=== PATIENT | female | born 1980 | race Caucasian/White ===

== ENCOUNTER → 2020-09-18 16:17 | Outpatient (CLI) | payer OTHER, SELFPAY ==
--- NOTE | ~2020-09-18 | MM_ITS ---
EXAMINATION: MM screening blanca BI w dorota HISTORY: Screening mammogram TECHNIQUE: Craniocaudal and mediolateral oblique 3-D tomosynthesis images were obtained and synthetic 2-D images were generated. CAD analysis was submitted and interpreted. COMPARISON: No prior mammogram is available for comparison at this institution. BREAST PARENCHYMAL COMPOSITION: There are scattered areas of fibroglandular density. FINDINGS: There is no evidence of suspicious mass, calcification, or architectural distortion to sugg est malignancy in either breast. There has been no suspicious interval change. IMPRESSION: 1. No mammographic evidence of malignancy. 2. Recommend routine screening mammography in one year. BI-RADS Category 1: Negative Reviewed, dictated and finalized at location A.
== END ==
PROVIDERS: Visit Provider Nurse Practitioner
DX: Z12.31 Encounter for screening mammogram for malignant neoplasm of breast (principal)
CPT/HCPCS: 77063; 77067

== ENCOUNTER 2021-07-13 13:57 | Inpatient (IN) | payer OTHER, SELFPAY ==
[2021-07-13 14:05] VITALS: BP 132/96; PULSE 96; RESP 16; TEMP 37; O2SAT 99
[2021-07-13 14:35] LABS: Alanine Aminotransferase 19 U/L (4-35); Albumin Level 4.6 g/dL (3.5-5.1); Alkaline Phosphatase 74 U/L (38-126); Anion Gap 8 mmol/L (8-16); Aspartate Amino Transferase 24 U/L (14-36); Bilirubin,Total 0.6 mg/dL (0.2-1.3); Blood Urea Nitrogen 11 mg/dL (7-17); Calcium 8.8 mg/dL (8.4-10.2); Carbon Dioxide 25 mmol/L (22-30); Chloride 104 mmol/L (98-107); Estimated CRCL calculation 101 ml/min; Estimated Glomerular Filt Rate > 60; Glucose 116 mg/dL (65-110); Potassium 3.8 mmol/L (3.4-5.0); Sodium 137 mmol/L (137-145)
[2021-07-13 14:38] LABS: INR 1.1; Prothrombin Time 13.5 Seconds (11.1-14.7)
[2021-07-13 14:39] LABS: Partial Thromboplastin Time 27.3 SECONDS (22.3-36.8)
--- NOTE | 2021-07-13 14:43 | ED.RECABL ---
HPI - Recheck/Abnormal Lab/Rx General Chief Complaint: Recheck/Abnormal Lab/Rx <RIKY Terrazas Last Filed: 07/13/21 17:42> Stated Complaint: abdnormal lab <RIKY Terrazas Last Filed: 07/13/21 17:42> Time Seen by Provider: 07/13/21 14:01 <RIKY Terrazas Last Filed: 07/13/21 17:42> Source: patient <RIKY Terrazas Last Filed: 07/13/21 17:42> Mode of arrival: ambulatory <RIKY Terrazas Last Filed: 07/13/21 17:42> Limitations: no limitations <RIKY Terrazas Last Filed: 07/13/21 17:42> History of Present Illness HPI narrative: This is a 40 year old female that presents to the ER for low platelets. Reports she had a short viral illness this weekend. Reports she had fever and chills for 24 hours. She did not have any localizing symptoms. Yesterday she started to note a petechial rash. The rash spread today which prompted her to be seen by her primary provider. Today she is also noted blood in the urine and she had a nosebleed earlier. Also reports she was recently on Bactrim for an area of cellulitis on the chest. Denies blood in the stool. <RIKY Terrazas Last Filed: 07/13/21 17:42> Related Data Home Medications: Home Medications Medication Instructions Recorded Confirmed escitalopram oxalate [Lexapro] 5 mg PO DAILY 07/13/21 07/13/21 <RIKY Terrazas Last Filed: 07/13/21 17:42> Allergies/Adverse Reactions: Allergies Allergy/AdvReac Type Severity Reaction Status Date / Time amoxicillin Allergy Unknown HIVES Verified 07/13/21 14:11 <RIKY Terrazas Last Filed: 07/13/21 17:42> Review of Systems Review of Systems: CONSTITUTIONAL: Reports fever GENITOURINARY: Reports hematuria. SKIN: Reports rash <RIKY Terrazas Last Filed: 07/13/21 17:42> All systems reviewed & are unremarkable except as noted in HPI and below <Latricia Silva PA-C - Last Filed: 07/13/21 17:42> PMFSH Past Medical History Medical History: Medical History (Updated 07/13/21 @ 17:42 by Latricia Silva PA-C) History of depression <Latricia Silva PA-C - Last Filed: 07/13/21 17:42> Social History Social History: Social History (Updated 07/13/21 @ 14:52 by Latricia Silva PA-C) Smoking packs per day: 1 Smoking cigarettes per day: 20.0 Smoking status: Former smoker Second hand tobacco smoke exposure: No Alcohol intake: never Substance use: never Spiritual care concerns: No <Latricia Silva PA-C - Last Filed: 07/13/21 17:42> Exam Narrative: GENERAL: Well-appearing, well-nourished, and in no acute distress. HEAD: Normocephalic, atraumatic. EYES: PERRLA and EOMI. ENT: Nares clear, no rhinorrhea or epistaxis. Mucous membranes moist. Oropharynx without tonsillar hypertrophy exudate or other lesions. Bilateral TMs pearly angel non-bulging. Purpura noted in the mouth NECK: Supple. No adenopathy or masses. CHEST: Clear to auscultation. No respiratory distress. No wheezes rales or rhonchi HEART: Regular rate and rhythm. No murmur heard. Normal peripheral pulses. EXTREMITIES: Normal range of motion. No edema. SKIN: Warm, dry. Diffuse petechial rash NEURO: No focal deficits. Alert and oriented x3. PSYCH: Normal mood and affect <Latricia Silva PA-C - Last Filed: 07/13/21 17:42> Course MAKEUP ARTIST/PA Physician Supervision For this patient encounter, I reviewed the MAKEUP ARTIST or PA documentation, treatment plan, and medical decision making; and I had [id number] time with this patient. <Geovanny Almanzar MD - Last Filed: 07/13/21 19:44> Consultations Consultation #1: Spoke with Dr. Zelaya about patient and work-up. Patient will be transfused platelets, started on Protonix and Solu-Medrol. <Latricia Silva PA-C - Last Filed: 07/13/21 17:42> Date: 07/13/21 <Latricia Silva PA-C - Last Filed: 07/13/21 17:42> Consultation #2: Spoke with hospitalist about patient and work
[2021-07-13 15:18] LABS: Basophils Percent Auto 0.7 % (0.2-1.2); Eosinophils Percent Auto 0.3 % (0-4.4); Hematocrit 40.4 % (37.0-47.0); Hemoglobin 14.1 g/dL (12.0-15.0); Immature Granulocyte Absolute 0.03 K/mm3 (0.00-0.031); Immature Granulocyte Percent A 0.5 % (0-0.5); Immature Platelet Fraction Pct 0.7 % (0.9-11.2); Lymphocytes Absolute Auto 1.42 K/mm3 (0.9-3.2); Lymphocytes Percent Auto 24.1 % (18.3-44.2); Mean Corpuscular HGB Conc 34.9 g/dl (32-36); Mean Corpuscular Hemoglobin 30.1 pg (26-34); Mean Corpuscular Volume 86.1 fl (80-100); Monocytes Absolute Auto 0.5 K/mm3 (0.1-0.6); Monocytes Percent Auto 8.1 % (2.6-8.5); Neutrophils Absolute Auto 3.9 K/mm3 (1.3-6.7); Neutrophils Percent Auto 66.3 % (45.5-73.1); Red Blood Count 4.69 M/mm3 (4.2-5.4); Red Cell Distribution Width 12.3 % (11.5-14.5); White Blood Count 5.9 K/mm3 (4.5-10.0)
[2021-07-13 15:25] LABS: Platelet Count Result < 3 k/mm3 (150-375)
[2021-07-13] MEDS: PANTOPRAZOLE SODIUM IV 40 MG VIAL IV PUSH (17:16)
[2021-07-13] MEDS: methylPREDNISolone SOD SUCC 40 MG VIAL 80 MG IV PUSH (17:16)
[2021-07-13 18:32] VITALS: BP 120/79; PULSE 82; RESP 18; O2SAT 99
--- NOTE | 2021-07-13 18:38 | ADMGEN ---
This patient, Ksenia Bruce, was admitted to [facility] Surg Room 328-01 AT 1840. Patient/family oriented to hospital policies and general routines including ID bracelet, bed and alarms, visiting hours, pain management, procedures, bathroom and other care routines, personal items, smoking policy, room service/diet, and visiting hours. Information on how to activate the Rapid Response Team has been discussed. Patient/Family are encouraged to report perceived risks to care and to ask questions if they do not understand what they are told or what they should do.
[2021-07-13 18:40] VITALS: BMI 27.9
[2021-07-13 18:41] VITALS: BP 132/85; PULSE 81; RESP 16; TEMP 36.9; O2SAT 97
--- NOTE | 2021-07-13 21:00 | PM.IMHP ---
H&P: HPI History of Present Illness Date/Time: 07/13/21 21:00 Chief Complaint: Low platelet count. Narrative: This is a very pleasant 40-year-old female without significant medical history who presented to the emergency department at the direction of her primary care provider for evaluation after she was found to have a low platelet count. She was started on Bactrim last week for what sounds like a boil underneath her right breast. About 5 days into her antibiotic she developed flu-like symptoms including chills, low-grade fever, body aches, and generalized malaise. Yesterday while at work she crossed her ankle over her knees at which time she noticed small ?pinpoint? red spots on her ankles. When she woke this morning she noticed these small red spots were widespread including on her trunk, in her mouth, and on her lips. She also had some bleeding coming from her mouth from ?blood blisters? and she noticed blood in her urine and a small amount of blood coming from her nose. She was seen by her primary care provider at which time she had labs drawn and she was told to come to the ER immediately as her platelet count was reportedly around 1000. Labs drawn in the ED confirmed thrombocytopenia with a platelet count less than 3000. Her other labs were unremarkable, however. After discussions with Dr. Zelaya (hematology) the patient will be transfused 2 units of platelets and she has also been started on Solu-Medrol. She has no prior history thrombocytopenia and denies recent heparin exposure, autoimmune diseases, or malignancy. She denies abdominal pain and fullness. Review of Systems Review of Systems: Twelve systems were reviewed. No sinus congestion, rhinorrhea, otalgia, or odynophagia. No cough or shortness of breath. No chest pain. No nausea, vomiting, or diarrhea. She had a normal bowel movement today without blood or mucus in the stool. No dysuria. Last menstrual period was July 02. Except as documented, all other systems were reviewed and are negative. [facility] Past Medical History Medical History (Updated 07/14/21 @ 01:23 by Lillian Bailey PA-C) Anxiety Surgical History Surgical History (Updated 07/14/21 @ 01:14 by Lillian Bailey PA-C) No history of previous surgery Family History Family History (Updated 07/14/21 @ 01:14 by Lillian Bailey PA-C) Father Diabetes mellitus Hypertension Coronary artery disease Mother Hypertension Social History Social History (Updated 07/14/21 @ 01:15 by Lillian Bailey PA-C) Social History: Surrogate decision maker: akin [employer]. Code status: Full code. Smoking packs per day: 1 Smoking cigarettes per day: 20.0 Smoking status: Former smoker Second hand tobacco smoke exposure: No Alcohol intake: never Substance use: never Additional living arrangements comments: Patient lives with her fiance and 5-year-old son in [place]. 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 Spiritual care concerns: No Meds Home Medications and Allergies Home Medications Medication Instructions Recorded Confirmed Type escitalopram oxalate [Lexapro] 5 mg PO DAILY 07/13/21 07/13/21 History Allergies Allergy/AdvReac Type Severity Reaction Status Date / Time amoxicillin Allergy Unknown HIVES Verified 07/13/21 14:11 Vital Signs Vital Signs - 24 hr 07/13/21 14:05 07/13/21 18:32 07/13/21 18:41 Temperature 98.6 F 98.4 F Pulse Rate 96 82 81 Respiratory Rate 16 18 16 Blood Pressure 132/96 H 120/79 132/85 Pulse Oximetry 99 99 97 07/13/21 22:00 07/13/21 22:58 07/13/21 23:10 Temperature 96.9 F L 97.0 F L 97.4 F L Pulse Rate 85 85 79 Respiratory Rate 18 12 12 Blood Pressure 135/80 110/75 121/80 Pulse Oximetry 97 98 99 07/14/21 00:05 07/14/21 00:24 Temperature 97.3 F L 97.3 F L Pulse Rate 77 74 Respiratory Rate 14 14 Blood Pressure 118/69 123/86 Pulse Oximetry 97 98 Exam Narrative: General: Well-dev
[2021-07-13 22:00] VITALS: BP 135/80; PULSE 85; RESP 18; TEMP 36.1; O2SAT 97
[2021-07-13 22:58] VITALS: BP 110/75; PULSE 85; RESP 12; TEMP 36.1; O2SAT 98
[2021-07-13 23:10] VITALS: BP 121/80; PULSE 79; RESP 12; TEMP 36.3; O2SAT 99
[2021-07-14] VITALS (7 sets, daily range): BP systolic 111–123; BP diastolic 65–86; PULSE 60–77; RESP 12–18; TEMP 36.3–37.2; O2SAT 97–99
[2021-07-14] MEDS: SODIUM CHLORIDE 0.9% IV 250 ML 30 ML IV CONT (00:27)
[2021-07-14] MEDS: methylPREDNISolone SOD SUCC 125 MG VIAL 80 MG IV PUSH ×2 (05:38→18:34)
[2021-07-14 06:05] LABS: Hematocrit 37.3 % (37.0-47.0); Hemoglobin 12.9 g/dL (12.0-15.0); Immature Platelet Fraction Pct 5.4 % (0.9-11.2); Mean Corpuscular HGB Conc 34.6 g/dl (32-36); Mean Corpuscular Hemoglobin 30.1 pg (26-34); Mean Corpuscular Volume 86.9 fl (80-100); Mean Platelet Volume 10.1 fl (7.4-10.4); Platelet Count Result 103 k/mm3 (150-375); Red Blood Count 4.29 M/mm3 (4.2-5.4); Red Cell Distribution Width 12.5 % (11.5-14.5); White Blood Count 8.9 K/mm3 (4.5-10.0)
[2021-07-14 06:25] LABS: Alanine Aminotransferase 19 U/L (4-35); Albumin Level 4.2 g/dL (3.5-5.1); Alkaline Phosphatase 64 U/L (38-126); Anion Gap 8 mmol/L (8-16); Aspartate Amino Transferase 23 U/L (14-36); Bilirubin,Total 0.5 mg/dL (0.2-1.3); Blood Urea Nitrogen 13 mg/dL (7-17); Calcium 8.7 mg/dL (8.4-10.2); Carbon Dioxide 25 mmol/L (22-30); Chloride 104 mmol/L (98-107); Estimated CRCL calculation 116 ml/min; Estimated Glomerular Filt Rate > 60; Glucose 109 mg/dL (65-110); Potassium 3.7 mmol/L (3.4-5.0); Sodium 137 mmol/L (137-145)
[2021-07-14 06:44] LABS: Magnesium 2.3 mg/dL (1.6-2.3)
[2021-07-14] MEDS: ESCITALOPRAM OXALATE 5 MG TABLET PO (09:20)
[2021-07-14] MEDS: PANTOPRAZOLE SODIUM IV 40 MG VIAL IV PUSH (09:20)
--- NOTE | 2021-07-14 11:15 | PM.IMPN ---
Progress Note: A&P Assessment and Plan (1) Thrombocytopenia: Code(s): D69.6 - Thrombocytopenia, unspecified Status: Acute Assessment and Plan: Differential diagnosis includes secondary to Bactrim, viral illness, ITP, versus other. Seems that this is a severe adverse reaction. Uptodate shows that this should resolve in one week, with an onset of 6 days to 5 weeks Current PLT 103 transfused 2 units of platelets Continue methylprednisolone Dr. Zelaya consulted Platelet antibodies have also been ordered Initiate bleeding precautions. (2) Boil, breast: Code(s): N61.1 - Abscess of the breast and nipple Status: Acute Assessment and Plan: Underneath right breast Reported to not look infected Wound consult Time Spent With Patient Time with patient: 25 - 35 minutes Subjective Date/time seen: 07/14/21 08:03 Interval history: Date/Time: 07/13/21 21:00 Narrative: This is a very pleasant 40-year-old female without significant medical history who presented to the emergency department at the direction of her primary care provider for evaluation after she was found to have a low platelet count. She was started on Bactrim last week for what sounds like a boil underneath her right breast. About 5 days into her antibiotic she developed flu-like symptoms including chills, low-grade fever, body aches, and generalized malaise. Yesterday while at work she crossed her ankle over her knees at which time she noticed small ?pinpoint? red spots on her ankles. When she woke this morning she noticed these small red spots were widespread including on her trunk, in her mouth, and on her lips. She also had some bleeding coming from her mouth from ?blood blisters? and she noticed blood in her urine and a small amount of blood coming from her nose. She was seen by her primary care provider at which time she had labs drawn and she was told to come to the ER immediately as her platelet count was reportedly around 1000. Labs drawn in the ED confirmed thrombocytopenia with a platelet count less than 3000. Her other labs were unremarkable, however. After discussions with Dr. Zelaya (hematology) the patient will be transfused 2 units of platelets and she has also been started on Solu-Medrol. She has no prior history thrombocytopenia and denies recent heparin exposure, autoimmune diseases, or malignancy. She denies abdominal pain and fullness. Date/Time 07/14/21 Patient states that she is doing okay today. She still does have petechiae consistently throughout her body. She denies any chest pain, shortness of breath, nausea, vomiting, diarrhea, constipation, weakness or pain. It is will continue to trend her platelets as she has returned to a normal level as of right now. Review of Systems Review of Systems: All systems reviewed & are unremarkable except as noted in HPI and below Exam Const: General: cooperative, healthy appearing, no acute distress, well developed, alert and awake Nutritional Appearance: well nourished Orientation/consciousness: patient oriented x3 Limitations: no limitations HENMT: Head: normal to inspection Ears: hearing grossly normal bilaterally General nose exam: Normal external nose present Mouth: Yes Normal oral and palatal mucosa present, Yes lip normal and Yes tongue normal Teeth and gingiva: abnormal tooth and associated gingiva and poor dentition Eyes: General: appearance normal, both eyes and all related structures Neck: Neck: normal visual inspection, full ROM, trachea midline and supple Chest: Chest palpation & inspection: normal inspection of the chest Resp: Effort & Inspection: normal respiratory effort and able to speak in complete sentences Auscultation: clear to auscultation bilaterally Cardio: Jugular venous distension: no JVD Rate: regular rate Rhythm: regular rhythm Heart sounds: S1 normal heart sound present and S2 normal heart sound present Peripher
--- NOTE | 2021-07-14 18:06 | PDONCCN ---
HPI - Date of Consult Date/Time: 07/14/21 18:06 Requesting Physician: Parth Romero MD Primary Care Provider: Manda Doll, DATE NIGHT SITTER - Consult Narrative Reason for consult: ITP Narrative: Ksenia Bruce is a 40 year old female who has been in good health was started on Bactrim for boil under the right breast. She developed flu-like symptoms including low-grade fever chills and body aches along with generalized malaise 5 days after taking the antibiotic treatment. She then developed bilateral lower extremity petechial hemorrhages and then next day she started having epistaxis and hematuria. She was seen by primary care provider Kala Doll and labs were done that showed platelet count of 1000. She was instructed to come into the ER for admission. She received 2 units of platelet transfusion with improvement in the platelet count. She was started on IV steroid treatment. She denies any previous history of thrombocytopenia. She has no other significant medical problems. Review of Systems - Review of Systems All systems reviewed & are unremarkable except as noted in HPI and [facility] Medical History: Medical History (Last Updated 07/14/21 @ 01:14 by Lillian Bailey PA-C) Anxiety Surgical History: Surgical History (Last Updated 07/14/21 @ 01:14 by Lillian Bailey PA-C) No history of previous surgery Family History: Family History (Last Updated 07/14/21 @ 01:14 by Lillian Bailey PA-C) Father Diabetes mellitus Hypertension Coronary artery disease Mother Hypertension - Social History Social History: Social History (Last Updated 07/14/21 @ 01:15 by Lillian Bailey PA-C) Alcohol Use: Alcohol intake: never Substance Use: Substance use: never Others: Spiritual care concerns: No Smoking Status: Smoking status: Former smoker Second hand tobacco smoke exposure: No Smoking Pack-years: Smoking packs per day: 1 Smoking cigarettes per day: 20.0 Meds Home Medications Medication Instructions Recorded Confirmed Type escitalopram oxalate [Lexapro] 5 mg PO DAILY 07/13/21 07/13/21 History Allergies Allergy/AdvReac Type Severity Reaction Status Date / Time amoxicillin Allergy Unknown HIVES Verified 07/13/21 14:11 Results - Labs CBC & Chem 7: 07/14/21 05:32 07/14/21 05:32 Labs: Short CBC 07/14/21 Range/Units 05:32 WBC 8.9 (4.5-10.0) K/mm3 Hgb 12.9 (12.0-15.0) g/dL Hct 37.3 (37.0-47.0) % Plt Count 103 L D (150-375) k/mm3 BMP 07/14/21 05:32 Sodium 137 Potassium 3.7 Chloride 104 Carbon Dioxide 25 BUN 13 Creatinine 0.60 L Glucose 109 Calcium 8.7 Liver Function 07/14/21 Range/Units 05:32 Total Bilirubin 0.5 (0.2-1.3) mg/dL AST 23 (14-36) U/L ALT 19 (4-35) U/L Alkaline Phosphatase 64 (38-126) U/L Albumin 4.2 (3.5-5.1) g/dL Assessment and Plan - Additional Plan Idiopathic thrombocytopenic purpura. Patient is a pleasant 40-year-old female who developed epistaxis and hematuria as well as bilateral lower extremity petechial hemorrhages after taking Bactrim for 6 days for boil under the right breast. She then developed flu-like symptoms as well. Platelet count dropped to 1000. After transfusion of platelets her platelet count has improved to 103,000 three thousand. She is already feeling better after starting IV Solu-Medrol. Platelet antibodies are pending. We will check CBC again in the morning. If platelet count remains stable we will switch her to prednisone 60 mg b.i.d. that she will taper 10 mg every 3rd day. She will also need PPI for GI prophylaxis. I have provided her my office information for follow-up. I would like to see her in my office in 1 week. I have answered all the questions to patient's satisfaction. Exam - Vital Signs Vital Signs - 24 hr 07/13/21 18:32 07/13/21 18:41 07/13/21 22:00 Temperature 36.9
[2021-07-14] MEDS: SILVERGEL (ELTA) 45 ML 1 APPLIC TOPICAL (18:33)
[2021-07-15 05:48] VITALS: BP 118/76; PULSE 69; RESP 18; TEMP 36.4; O2SAT 98
[2021-07-15 05:53] LABS: Basophils Percent Auto 0.3 % (0.2-1.2); Hematocrit 36.7 % (37.0-47.0); Immature Granulocyte Percent A 0.7 % (0-0.5); Lymphocytes Absolute Auto 2.32 K/mm3 (0.9-3.2); Lymphocytes Percent Auto 15.8 % (18.3-44.2); Mean Corpuscular HGB Conc 35.4 g/dl (32-36); Mean Corpuscular Hemoglobin 30.2 pg (26-34); Mean Corpuscular Volume 85.3 fl (80-100); Mean Platelet Volume 10.8 fl (7.4-10.4); Monocytes Absolute Auto 0.7 K/mm3 (0.1-0.6); Monocytes Percent Auto 4.7 % (2.6-8.5); Neutrophils Absolute Auto 11.5 K/mm3 (1.3-6.7); Neutrophils Percent Auto 78.5 % (45.5-73.1); Platelet Count Result 151 k/mm3 (150-375); Red Cell Distribution Width 12.4 % (11.5-14.5); White Blood Count 14.7 K/mm3 (4.5-10.0)
[2021-07-15 06:01] LABS: Alanine Aminotransferase 18 U/L (4-35); Albumin Level 4.3 g/dL (3.5-5.1); Alkaline Phosphatase 62 U/L (38-126); Anion Gap 7 mmol/L (8-16); Aspartate Amino Transferase 22 U/L (14-36); Bilirubin,Total 0.3 mg/dL (0.2-1.3); Blood Urea Nitrogen 15 mg/dL (7-17); Calcium 8.7 mg/dL (8.4-10.2); Carbon Dioxide 28 mmol/L (22-30); Chloride 102 mmol/L (98-107); Estimated CRCL calculation 101 ml/min; Estimated Glomerular Filt Rate > 60; Glucose 128 mg/dL (65-110); Magnesium 2.1 mg/dL (1.6-2.3); Potassium 4.3 mmol/L (3.4-5.0); Sodium 137 mmol/L (137-145)
[2021-07-15] MEDS: methylPREDNISolone SOD SUCC 125 MG VIAL 80 MG IV PUSH (06:01)
[2021-07-15] MEDS: ESCITALOPRAM OXALATE 5 MG TABLET PO (08:53)
[2021-07-15] MEDS: PANTOPRAZOLE SODIUM IV 40 MG VIAL IV PUSH (08:54)
[2021-07-15] MEDS: SILVERGEL (ELTA) 45 ML 1 APPLIC TOPICAL (08:54)
--- NOTE | 2021-07-15 10:51 | PM.DS ---
DS: Admitting Diagnosis Discharge Date 07/15/21 1115 Admitting Diagnosis ITP DS: Discharge Diagnosis Discharge Diagnosis (1) Thrombocytopenia: Code(s): D69.6 - Thrombocytopenia, unspecified Status: Acute Assessment and Plan: Differential diagnosis includes secondary to Bactrim, viral illness, ITP, versus other. Seems that this is a severe adverse reaction. Uptodate shows that this should resolve in one week, with an onset of 6 days to 5 weeks Current PLT 103 transfused 2 units of platelets Continue methylprednisolone Dr. Zelaya consulted Platelet antibodies have also been ordered Initiate bleeding precautions. (2) Boil, breast: Code(s): N61.1 - Abscess of the breast and nipple Status: Acute Assessment and Plan: Underneath right breast Reported to not look infected Wound consult DS: Summary Hospital Course Hospital Course: Patient is a 40-year-old female with a past medical history of anxiety who presented to the ED with thrombocytopenia from her primary care provider. Patient was also noted to have petechiae on the trunk and limbs. Patient was recently seen for infected boil and was given Bactrim. Patient completed a course of Bactrim and did go through a period of flu-like symptoms. Patient woke up the morning of admission with blood from her nose and urine. Labs were found to be critically low platelets. Upon arrival patient's platelets were 3. Patient was given 2 units of platelets and Oncology was consulted. Patient was also started on IV methylprednisone. Patient has no further complaints and it seems as this might be an allergic reaction from the Bactrim. Platelets have been trending up. Patient is stable for discharge will be going home on a prednisone taper. Patient will need follow-up with Oncology in 1 week. Labs and vital signs are stable at this time Status at Discharge Functional status at discharge: independent ambulation Overall status at discharge: patient is progressing back to baseline Time Spent with Patient Time attestation: Total time spent providing and/or coordinating discharge services: 42 minutes Time spent: Greater than 30 minutes Specific discharge activities: Diagnostic testing, chart review, developing a treatment plan, education, care coordination documentation, physical exam, result review Exam Const: General: cooperative, healthy appearing, no acute distress, well developed, alert and awake Nutritional Appearance: well nourished Orientation/consciousness: patient oriented x3 Limitations: no limitations HENMT: Head: normal to inspection Ears: hearing grossly normal bilaterally General nose exam: Normal external nose present Mouth: Yes Normal oral and palatal mucosa present, Yes lip normal and Yes tongue normal Teeth and gingiva: abnormal tooth and associated gingiva and poor dentition Eyes: General: appearance normal, both eyes and all related structures Neck: Neck: normal visual inspection, full ROM, trachea midline and supple Chest: Chest palpation & inspection: normal inspection of the chest Resp: Effort & Inspection: normal respiratory effort and able to speak in complete sentences Auscultation: clear to auscultation bilaterally Cardio: Jugular venous distension: no JVD Rate: regular rate Rhythm: regular rhythm Heart sounds: S1 normal heart sound present and S2 normal heart sound present Peripheral pulses: Peripheral pulses 2+ throughout GI: Inspection: normal to inspection Auscultation: normal bowel sounds Skin: General skin exam: normal color and no rashes or lesions noted Lesions: no lesions Rashes: rashes noted Trauma: no lacerations or abrasions Wounds: no wounds Hair: normal Nails: normal Neuro: General: patient oriented x3, moves all extremities and Normal light touch and pain sensation Speech: normal speech Gait exam (Neuro): Normal gait present Extrem: General: normal to inspection
[2021-07-22 20:07] LABS: Platelet Ab,Indirect (IgA) NEGATIVE (NEGATIVE); Platelet Ab,Indirect (IgG) NEGATIVE (NEGATIVE); Platelet Ab,Indirect (IgM) POSITIVE (NEGATIVE)
== END 2021-07-15 12:35 | disposition home or self-care (01) | DRG 813 ==
LOC: ANHED 17:42 → ANH3MEDSUR 07-14 10:21
PROVIDERS: Physician Assistant; Admitting Provider Internal Medicine; Emergency Provider Emergency Medicine; PCP Nurse Practitioner Family; Visit Provider Nurse Practitioner
DX: D69.3 Immune thrombocytopenic purpura (principal); N61.1 Abscess of the breast and nipple; F41.9 Anxiety disorder, unspecified; Z79.899 Other long term (current) drug therapy; Z87.891 Personal history of nicotine dependence
CPT/HCPCS: 36415; 36430; 80053; 81025; 81479; 83735; 85025; 85027; 85055; 85610; 85730; 86022; 86023; 86850; 86870; 86880; 86900; 86901; 86902; 86971; 96374; 96375; 99285; A9270; C9113; J2920; J2930; J7050; P9034

== ENCOUNTER 2021-07-21 08:57 | Outpatient (CLI) | payer OTHER, SELFPAY ==
[2021-07-21 09:12] LABS: Hematocrit 41.7 % (37.0-47.0); Hemoglobin 13.8 g/dL (12.0-15.0); Mean Corpuscular HGB Conc 33.1 g/dl (32-36); Mean Corpuscular Volume 90.7 fl (80-100); Mean Platelet Volume 9.1 fl (7.4-10.4); Platelet Count Result 549 k/mm3 (150-375); Red Cell Distribution Width 12.6 % (11.5-14.5); White Blood Count 19.5 K/mm3 (4.5-10.0)
== END 2021-07-21 08:58 | disposition home or self-care (01) ==
LOC: ANHLAB 08:59
PROVIDERS: PCP Nurse Practitioner Family; Visit Provider Internal Medicine Hematology & Oncology
DX: D69.3 Immune thrombocytopenic purpura (principal)
CPT/HCPCS: 36415; 85027

== ENCOUNTER 2021-07-28 15:10 | Outpatient (CLI) | payer OTHER, SELFPAY ==
[2021-07-28 15:21] LABS: Hematocrit 44.2 % (37.0-47.0); Hemoglobin 13.9 g/dL (12.0-15.0); Mean Corpuscular HGB Conc 31.4 g/dl (32-36); Mean Corpuscular Hemoglobin 29.8 pg (26-34); Mean Corpuscular Volume 94.8 fl (80-100); Mean Platelet Volume 9.8 fl (7.4-10.4); Platelet Count Result 283 k/mm3 (150-375); Red Blood Count 4.66 M/mm3 (4.2-5.4); Red Cell Distribution Width 12.8 % (11.5-14.5); White Blood Count 16.2 K/mm3 (4.5-10.0)
== END 2021-07-28 15:11 | disposition home or self-care (01) ==
LOC: ANHLAB 15:11
PROVIDERS: PCP Nurse Practitioner Family; Visit Provider Internal Medicine Hematology & Oncology
DX: D69.3 Immune thrombocytopenic purpura (principal)
CPT/HCPCS: 36415; 85027

== ENCOUNTER 2021-08-11 15:17 | Outpatient (RCR) | payer OTHER, SELFPAY ==
[2021-08-11 15:37] LABS: Hematocrit 41.2 % (37.0-47.0); Hemoglobin 13.5 g/dL (12.0-15.0); Mean Corpuscular HGB Conc 32.8 g/dl (32-36); Mean Corpuscular Hemoglobin 30.4 pg (26-34); Mean Corpuscular Volume 92.8 fl (80-100); Mean Platelet Volume 9.7 fl (7.4-10.4); Platelet Count Result 260 k/mm3 (150-375); Red Blood Count 4.44 M/mm3 (4.2-5.4); Red Cell Distribution Width 12.7 % (11.5-14.5); White Blood Count 9.8 K/mm3 (4.5-10.0)
== END 2021-11-09 23:59 | disposition home or self-care (01) ==
LOC: ANHLAB 15:17
PROVIDERS: PCP Nurse Practitioner Family; Visit Provider Internal Medicine Hematology & Oncology
DX: D69.3 Immune thrombocytopenic purpura (principal)
CPT/HCPCS: 36415; 85027

== ENCOUNTER → 2021-09-29 14:27 | Outpatient (CLI) | payer OTHER, SELFPAY ==
--- NOTE | ~2021-09-29 | MM_ITS ---
EXAMINATION: MM screening blanca BI w dorota HISTORY: Screening TECHNIQUE: Craniocaudal and mediolateral oblique 3-D tomosynthesis images were obtained and synthetic 2-D images were generated. CAD analysis was submitted and interpreted. COMPARISON: No prior mammogram is available for comparison at this institution. BREAST PARENCHYMAL COMPOSITION: There are scattered areas of fibroglandular density. FINDINGS: There is no evidence of suspicious mass, calcification, or architectural distortion to sugg est malignancy in either breast. There has been no suspicious interval change. IMPRESSION: 1. No mammographic evidence of malignancy. 2. Recommend routine screening mammography in one year. BI-RADS Category 1: Negative Reviewed, dictated and finalized at location A.
== END ==
PROVIDERS: PCP Nurse Practitioner Family; Visit Provider Nurse Practitioner
DX: Z12.31 Encounter for screening mammogram for malignant neoplasm of breast (principal)
CPT/HCPCS: 77063; 77067

== ENCOUNTER 2021-11-09 14:43 | Outpatient (CLI) | payer OTHER, SELFPAY ==
[2021-11-09 14:55] LABS: Basophils Absolute Auto 0.1 K/mm3 (0.0-0.1); Basophils Percent Auto 0.5 % (0.2-1.2); Eosinophils Absolute Auto 0.2 K/mm3 (0-0.3); Eosinophils Percent Auto 2.4 % (0-4.4); Hematocrit 39.8 % (37.0-47.0); Hemoglobin 13.8 g/dL (12.0-15.0); Immature Granulocyte Absolute 0.05 K/mm3 (0.00-0.031); Immature Granulocyte Percent A 0.5 % (0-0.5); Lymphocytes Absolute Auto 2.97 K/mm3 (0.9-3.2); Lymphocytes Percent Auto 31.1 % (18.3-44.2); Mean Corpuscular HGB Conc 34.7 g/dl (32-36); Mean Corpuscular Hemoglobin 29.9 pg (26-34); Mean Corpuscular Volume 86.3 fl (80-100); Mean Platelet Volume 9.7 fl (7.4-10.4); Monocytes Absolute Auto 0.6 K/mm3 (0.1-0.6); Monocytes Percent Auto 6.4 % (2.6-8.5); Neutrophils Absolute Auto 5.6 K/mm3 (1.3-6.7); Neutrophils Percent Auto 59.1 % (45.5-73.1); Platelet Count Result 309 k/mm3 (150-375); Red Blood Count 4.61 M/mm3 (4.2-5.4); Red Cell Distribution Width 12.1 % (11.5-14.5); White Blood Count 9.5 K/mm3 (4.5-10.0)
== END 2021-11-09 14:44 | disposition home or self-care (01) ==
LOC: ANHLAB 14:45
PROVIDERS: PCP Nurse Practitioner Family; Visit Provider Internal Medicine Hematology & Oncology
DX: D69.3 Immune thrombocytopenic purpura (principal)
CPT/HCPCS: 36415; 85025

== ENCOUNTER 2022-08-27 09:18 | Emergency (ER) | payer OTHER, SELFPAY ==
--- NOTE | 2022-08-27 09:23 | ED.URI ---
HPI - URI/Sore Throat General Chief Complaint: Upper Respiratory Infection Stated Complaint: Sore Throat,Bilateral Ear Irritation Time Seen by Provider: 08/27/22 09:23 Source: patient Mode of arrival: ambulatory Limitations: no limitations History of Present Illness HPI Narrative: Patient is a 41-year-old female who presents with sore throat, ear fullness, mild congestion since yesterday. Patient states sore throat came on suddenly it feels like razor blades. Patient states she still able to eat and drink normally it is just painful. Denies any fever, chills, headache, nausea, vomiting, diarrhea. Related Data Home Medications Medication Instructions Recorded Confirmed escitalopram oxalate 5 mg tablet 5 mg PO DAILY 07/13/21 08/27/22 (Lexapro) Allergies Allergy/AdvReac Type Severity Reaction Status Date / Time amoxicillin Allergy Unknown HIVES Verified 08/27/22 09:32 Sulfa (Sulfonamide Allergy Other Verified 08/27/22 09:37 Antibiotics) sulfamethoxazole Allergy Other Verified 08/27/22 09:38 [From Bactrim] trimethoprim [From Bactrim] Allergy Other Verified 08/27/22 09:38 Review of Systems Review of Systems: All systems reviewed & are unremarkable except as noted in HPI and below Constitutional: Constitutional: Denies body ache(s), Denies fever(s), Denies headache(s), Denies malaise and Denies weakness Eyes: Eyes: Denies loss of vision ENT: Denies otalgia, Denies headache(s), Reports nasal congestion, Denies sinus pain and Reports sore throat Cardiovascular: Cardiovascular: Denies chest pain, Denies irregular heart rhythm and Denies dyspnea Respiratory: Respiratory: Denies cough and Denies dyspnea Gastrointestinal: Gastrointestinal: Denies abdominal pain, Denies melena, Denies hematochezia, Denies diarrhea, Denies nausea and Denies vomiting Musculoskeletal: Musculoskeletal: Denies back pain, Denies myalgias and Denies arthralgias Integumentary/Breasts: Skin/Breast: Denies pruritus and Denies rash Neurologic: Denies headache(s), Denies loss of vision and Denies weakness Psychiatric: Psychiatric: Reports no additional psychiatric complaints [facility] Past Medical History Medical History (Updated 08/27/22 @ 09:48 by Patricia Hitchcock APRN) Anxiety Surgical History Surgical History (Updated 07/14/21 @ 18:10 by Bobby Zelaya MD) No history of previous surgery Family History Family History (Updated 07/14/21 @ 01:14 by Lillian Bailey PA-C) Father Diabetes mellitus Hypertension Coronary artery disease Mother Hypertension Social History Social History (Updated 07/14/21 @ 01:15 by Lillian Bailey PA-C) Social History: Surrogate decision maker: akin [employer]. Code status: Full code. Smoking packs per day: 1 Smoking cigarettes per day: 20.0 Smoking status: Former smoker Second hand tobacco smoke exposure: No Alcohol intake: never Substance use: never Additional living arrangements comments: Patient lives with her fiance and 5-year-old son in [place]. 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 Spiritual care concerns: No Comments At time of signature, agree with nursing past medical, surgical, social and family history. There is no relevant family history pertinent to the presenting complaint. Exam Const: General: cooperative, healthy appearing, comfortable, no acute distress and well nourished Nutritional Appearance: well nourished Orientation/consciousness: patient oriented x3 Limitations: no limitations HENMT: Head: normal to inspection, normocephalic and atraumatic Ears: hearing grossly normal bilaterally, external ears normal, TM normal on the right, EAC's normal and TM abnormal with fluid behind the TM on the left Face/Nose/Sinus: Normal external nose present, Normal nares present, Normal nasal mucous membranes and turbinates present, Normal septum present, normal facial exam, sinuses nontender and face symmetric
[2022-08-27 09:24] VITALS: BP 134/83; PULSE 107; RESP 18; TEMP 37.1; O2SAT 100
== END 2022-08-27 09:51 | disposition home or self-care (01) ==
PROVIDERS: Emergency Provider Nurse Practitioner Family; PCP Nurse Practitioner Family
DX: J02.0 Streptococcal pharyngitis (principal); Z87.891 Personal history of nicotine dependence; F41.9 Anxiety disorder, unspecified
CPT/HCPCS: 87880; 99213; G0463

== ENCOUNTER → 2022-10-29 09:18 | Outpatient (CLI) | payer OTHER, SELFPAY ==
--- NOTE | ~2022-10-29 | MM_ITS ---
EXAMINATION: MM screening blanca BI w dorota HISTORY: Screening mammogram TECHNIQUE: Craniocaudal and mediolateral oblique 3-D tomosynthesis images were obtained and synthetic 2-D images were generated. CAD analysis was submitted and interpreted. COMPARISON: 09/29/2021, 09/18/2020 bilateral screening mammogram examinations BREAST PARENCHYMAL COMPOSITION: There are scattered areas of fibroglandular density. FINDINGS: There is interval increased prominence of what appears to be a lymph node in the posterior central blasts lateral to the mid sagittal plane, measuring approximately 4.7 x 11 mm. Diagnostic lef t mammogram and ultrasound examination are recommended. Otherwise there is no evidence of suspicious mass, calcification, or architectural distortion to sugg est malignancy in either breast. There has been no other suspicious interval change. IMPRESSION: 1. Interval increased size of probable lymph node in the posterior relatively central left breast lat eral to mid sagittal plane 2. Diagnostic left mammogram and left breast ultrasound examination are recommended BI-RADS Category 0: Incomplete: Needs additional imaging evaluation. Reviewed, dictated and finalized at location A. IMPRESSION: 1. Interval increased size of probable lymph node in the posterior relatively c entral left breast lateral to mid sagittal plane 2. Diagnostic left mammogram and left breast ultrasound examination are recomme nded BI-RADS Category 0: Incomplete: Needs additional imaging evaluation.
== END ==
PROVIDERS: PCP Nurse Practitioner Family; Visit Provider Nurse Practitioner
DX: Z12.31 Encounter for screening mammogram for malignant neoplasm of breast (principal); R92.8 Other abnormal and inconclusive findings on diagnostic imaging of breast
CPT/HCPCS: 77063; 77067

== ENCOUNTER 2022-11-24 13:04 | Outpatient (CLI) | payer OTHER, SELFPAY ==
--- NOTE | ~2022-11-24 | MMUS_ITS ---
Diagnostic and ultrasound EXAMINATION: MM diagnostic blanca LT w dorota, US breast LT limited HISTORY: Follow-up left breast mass TECHNIQUE: Additional 3-D tomosynthesis images of the left breast were performed and synthetic 2-D im ages were generated. CAD analysis was submitted and interpreted. High resolution Limited left breast ultrasound was performed. COMPARISON: Comparison to multiple prior studies sequentially, with oldest reviewed study dated 09/18. BREAST PARENCHYMAL COMPOSITION: Breast composed of scattered areas of fibroglandular density FINDINGS: MAMMOGRAPHIC FINDINGS: There is a persistent mass in the lower outer quadrant of the left breast posteriorly near the chest wall measuring approximately 6-7 mm on medial lateral view. ULTRASOUND: Limited left breast ultrasound: At 5:00, 6 cm from the nipple there is a 6 mm cyst which likely corre sponds to the mammographic finding. No suspicious masses in the left breast to suggest malignancy. IMPRESSION: 1. No evidence for malignancy in the left breast. Benign cyst measuring 6 mm likely corresponds to th e mammographic finding. 2. Recommend 6 month follow-up diagnostic left mammogram and ultrasound BI-RADS category 3, probably benign findings. Reviewed, dictated and finalized at location L. IMPRESSION: 1. No evidence for malignancy in the left breast. Benign cyst measuring 6 mm li jesu corresponds to the mammographic finding. 2. Recommend 6 month follow-up diagnostic left mammogram and ultrasound BI-RADS category 3, probably benign findings.
== END 2022-11-24 13:05 | disposition home or self-care (01) ==
PROVIDERS: PCP Nurse Practitioner Family; Visit Provider Obstetrics & Gynecology Gynecology
DX: R92.8 Other abnormal and inconclusive findings on diagnostic imaging of breast (principal); N60.02 Solitary cyst of left breast
CPT/HCPCS: 76642; 77061; 77065; G0279

== ENCOUNTER 2023-05-15 08:44 | Outpatient (CLI) | payer OTHER, SELFPAY ==
--- NOTE | ~2023-05-15 | MMUS_ITS ---
EXAMINATION: MM diagnostic blanca LT w dorota, US breast LT limited HISTORY: Six-month follow-up for probably benign left breast mass TECHNIQUE: Craniocaudal, mediolateral, and mediolateral oblique 3-D tomosynthesis images of the left breast were performed and synthetic 2-D images were generated. CAD analysis was submitted and interpr eted. High resolution limited left breast ultrasound was performed. COMPARISON: 11/24/2022, 10/29/2022, 09/29/2021, 09/18/2020 BREAST PARENCHYMAL COMPOSITION: There are scattered areas of fibroglandular density. FINDINGS: MAMMOGRAPHIC FINDINGS: The previously described left breast mass demonstrates interval decrease in size in a return to basel ine appearance when compared to prior examinations dating back to 2020. There has been no suspicious interval change. ULTRASOUND: There is no evidence of focal abnormal solid or cystic mass in the vicinity of the mammographic findi ng in question. IMPRESSION: 1. Return to baseline appearance of the previously described left breast mass. No sonographic evidenc e of malignancy. 2. Recommend routine screening mammography, due in November. BI-RADS Category 2: Benign finding(s). Reviewed, dictated and finalized at location A. FOREMAN IMPRESSION: 1. Return to baseline appearance of the previously described left breast mass. No sonographic evidence of malignancy. 2. Recommend routine screening mammography, due in November. BI-RADS Category 2: Benign finding(s).
== END 2023-05-15 08:45 | disposition home or self-care (01) ==
LOC: CHSIMG 08:46
PROVIDERS: PCP Nurse Practitioner Family; Visit Provider Obstetrics & Gynecology Gynecology
DX: N63.23 Unspecified lump in the left breast, lower outer quadrant (principal)
CPT/HCPCS: 76642; 77061; 77065; G0279

== ENCOUNTER 2023-11-02 08:19 | Outpatient (CLI) | payer OTHER, SELFPAY ==
--- NOTE | ~2023-11-02 | MM_ITS ---
EXAMINATION: MM screening blanca BI w dorota HISTORY: Screening TECHNIQUE: Craniocaudal and mediolateral oblique 3-D tomosynthesis images were obtained and synthetic 2-D images were generated. CAD analysis was submitted and interpreted. COMPARISON: Comparison to multiple prior studies sequentially, with oldest reviewed study dated 11/18. BREAST PARENCHYMAL COMPOSITION: There are scattered areas of fibroglandular density. FINDINGS: There is no evidence of suspicious mass, calcification, or architectural distortion to sugg est malignancy in either breast. There has been no suspicious interval change. IMPRESSION: 1. No mammographic evidence of malignancy. 2. Recommend routine screening mammography in one year. BI-RADS Category 1: Negative Reviewed, dictated and finalized at location B.
== END 2023-11-02 08:20 | disposition home or self-care (01) ==
PROVIDERS: PCP Internal Medicine; Visit Provider Nurse Practitioner
DX: Z12.31 Encounter for screening mammogram for malignant neoplasm of breast (principal)
CPT/HCPCS: 77063; 77067

== ENCOUNTER 2023-11-17 07:41 | Emergency (ER) | payer OTHER, SELFPAY ==
[2023-11-17] VITALS (7 sets, daily range): BP systolic 130–163; BP diastolic 76–101; PULSE 86–99; RESP 16–18; TEMP 37–37.4; O2SAT 96–100
--- NOTE | ~2023-11-17 | CT_ITS ---
EXAMINATION: CT abdomen pelvis wo con DATE: 11/17/2023 08:45 INDICATION: Hematuria. TECHNIQUE: Computed tomography (CT) of the abdomen and pelvis was performed without intravenous contr ast. Automated exposure control and iterative reconstruction technique were employed. The dose-length product was 986.78 mGy-cm. COMPARISON: None. FINDINGS: The visualized portions of lung bases demonstrate mild atelectasis. No pleural effusion. Th e heart size is normal. No pericardial effusion. The liver and spleen are normal. There are gallstone s in the gallbladder, which is normal in size. The pancreas, adrenal glands, and kidneys are normal. There is no urolithiasis. There are no dilated loops of bowel. The appendix is normal. There are no p athologically enlarged lymph nodes. There is no free intraperitoneal fluid. There is mild thoracic an d lumbar spondylosis. IMPRESSION: 1. No urolithiasis. 2. Cholelithiasis. Reviewed, dictated and finalized at location A.
--- NOTE | 2023-11-17 07:53 | ED.GENADULT ---
HPI - General Adult General Chief complaint: Unspecified Stated complaint: hematuria, panic attack Time Seen by Provider: 11/17/23 07:46 History of Present Illness HPI narrative: 43-year-old female presenting to the emergency department for evaluation for hematuria and subsequent panic attack. Patient reports a few years ago she had some issues with thrombocytopenia that presented as hematuria. Patient did have follow-up with Hematology that time and was ultimately cleared. Patient states today she went to urinate notice some blood in her urine and then started to have a subsequent panic attack. Patient arrived to the emergency department still in a panic attack and was very tearful at time of examination. Patient denies any other complaints. Patient states that the bleeding was not vaginal. Related Data Home Medications Medication Instructions Recorded Confirmed escitalopram oxalate 5 mg tablet 5 mg PO DAILY 07/13/21 08/27/22 (Lexapro) Allergies Allergy/AdvReac Type Severity Reaction Status Date / Time amoxicillin Allergy Unknown HIVES Verified 11/17/23 07:50 Sulfa (Sulfonamide Allergy Other Verified 11/17/23 07:50 Antibiotics) sulfamethoxazole Allergy Other Verified 11/17/23 07:50 [From Bactrim] trimethoprim [From Bactrim] Allergy Other Verified 11/17/23 07:50 Review of Systems Review of Systems: All systems reviewed & are unremarkable except as noted in HPI and below PMFSH Past Medical History Medical History (Updated 11/17/23 @ 09:28 by Riky Diaz MD) Anxiety Surgical History Surgical History (Updated 07/14/21 @ 18:10 by Bobby Zelaya MD) No history of previous surgery Family History Family History (Updated 07/14/21 @ 01:14 by Lillian Bailey PA-C) Father Diabetes mellitus Hypertension Coronary artery disease Mother Hypertension Social History Social History (Updated 07/14/21 @ 01:15 by Lillian Bailey PA-C) Social History: Surrogate decision maker: akin [employer]. Code status: Full code. Smoking packs per day: 1 Smoking cigarettes per day: 20.0 Smoking status: Former smoker Second hand tobacco smoke exposure: No Alcohol intake: never Substance use: never Additional living arrangements comments: Patient lives with her fiance and 5-year-old son in [place]. 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 Spiritual care concerns: No Exam Narrative: APPEARANCE: Well appearing, no pain, no distress, well-nourished. HEAD: normocephalic, atraumatic. EYES: PERRLA/EOMI, conjunctivae clear. NOSE: Normal no drainage EARS:TMS clear with good light reflex. THROAT: Pharynx clear, no exudate. NECK: Supple. No adenopathy, no masses. RESPIRATORY: Airway patent, respirations nonlabored. Clear to auscultation bilaterally, no rales, rhonchi, wheezing. CARDIOVASCULAR: Regular rate and rhythm without murmurs rubs or gallops. ABDOMINAL: Soft, nontender, nondistended, normal bowel sounds MUSCULOSKELETAL: Moves all extremities. Strength/ROM intact, No edema, No calf tenderness. NEURO: Alert. Cranial nerves II through XII intact. Good gait. Good coordination SKIN: Warm, dry. Normal Color PSYCHIATRIC: Tearful affect Course Course Emergency Course: Patient felt significantly improved with treatment Vital Signs Vital signs: Vital Signs Temperature 99.4 F 11/17/23 07:47 Pulse Rate 95 11/17/23 07:47 Respiratory Rate 18 11/17/23 07:47 Blood Pressure 163/98 H 11/17/23 07:47 Pulse Oximetry 100 11/17/23 07:47 Oxygen Delivery Room Air 11/17/23 07:47 Temperature 98.6 F 11/17/23 09:49 Pulse Rate 86 11/17/23 09:49 Respiratory Rate 16 11/17/23 09:49 Blood Pressure 130/76 11/17/23 09:49 Pulse Oximetry 99 11/17/23 09:49 Oxygen Delivery Room Air 11/17/23 07:47 Medical Decision Making [facility] Narrative Medical decision making narrative: 43-year-old female presenting to the emerge
[2023-11-17] MEDS: LORazepam INJ (*CRX) 2 MG/ML VIAL 0.5 MG IV PUSH (07:56)
[2023-11-17 08:09] LABS: Basophils Percent Auto 0.4 % (0.2-1.2); Eosinophils Absolute Auto 0.1 K/mm3 (0-0.3); Eosinophils Percent Auto 0.8 % (0-4.4); Hematocrit 45.6 % (37.0-47.0); Hemoglobin 15.6 g/dL (12.0-15.0); Immature Granulocyte Absolute 0.03 K/mm3 (0.00-0.031); Immature Granulocyte Percent A 0.4 % (0-0.5); Lymphocytes Absolute Auto 2.35 K/mm3 (0.9-3.2); Lymphocytes Percent Auto 28.2 % (18.3-44.2); Mean Corpuscular HGB Conc 34.2 g/dl (32-36); Mean Corpuscular Hemoglobin 29.6 pg (26-34); Mean Corpuscular Volume 86.5 fl (80-100); Monocytes Absolute Auto 0.6 K/mm3 (0.1-0.6); Monocytes Percent Auto 6.6 % (2.6-8.5); Neutrophils Absolute Auto 5.3 K/mm3 (1.3-6.7); Neutrophils Percent Auto 63.6 % (45.5-73.1); Platelet Count Result 345 k/mm3 (150-375); Red Blood Count 5.27 M/mm3 (4.2-5.4); Red Cell Distribution Width 12.3 % (11.5-14.5); White Blood Count 8.3 K/mm3 (4.5-10.0)
[2023-11-17 08:18] LABS: Add Urine Microscopic? YES; Appearance Urine Turbid (Clear); Bacteria Urine Rare /hpf; Bilirubin Urine 2+ (Negative); Blood Urine 1+ (Negative); Color Urine Dark Yellow (Yellow); Glucose Urine UA Negative (Negative); Ketones Urine 1+ mg/dL (Negative); Leukocyte Esterase Ur Negative LEU/UL (Negative); Nitrate Urine Negative (Negative); Protein Urine 1+ mg/dL (Negative); Specific Grav Ur 1.031 (1.001-1.035); Squamous Epithelial Cell Urine Moderate /hpf (Few); WBC Urine 0-5 /hpf (0-3); pH Urine 5.5 (5.0-9.0)
[2023-11-17 08:19] LABS: Alanine Aminotransferase 19 U/L (6-35); Albumin Level 5.1 g/dL (3.5-5.1); Alkaline Phosphatase 85 U/L (38-126); Anion Gap 14 mmol/L (4-12); Aspartate Amino Transferase 26 U/L (14-36); Bilirubin,Total 1.2 mg/dL (0.2-1.3); Blood Urea Nitrogen 12 mg/dL (7-17); Calcium 9.7 mg/dL (8.4-10.2); Carbon Dioxide 26 mmol/L (22-30); Chloride 99 mmol/L (98-107); Estimated CRCL calculation 92 ml/min; Estimated Glomerular Filt Rate > 60; Glucose 129 mg/dL (65-110); Potassium 3.7 mmol/L (3.4-5.0); Sodium 139 mmol/L (137-145)
== END 2023-11-17 09:50 | disposition home or self-care (01) ==
PROVIDERS: Emergency Provider Emergency Medicine; PCP Internal Medicine
DX: R31.9 Hematuria, unspecified (principal); F41.9 Anxiety disorder, unspecified; Z87.891 Personal history of nicotine dependence; Z79.899 Other long term (current) drug therapy; K80.20 Calculus of gallbladder without cholecystitis without obstruction
CPT/HCPCS: 36415; 74176; 80053; 81001; 85025; 96374; 99284; J2060

== ENCOUNTER 2024-11-04 08:15 | Outpatient (CLI) | payer OTHER, SELFPAY ==
--- NOTE | ~2024-11-04 | MM_ITS ---
EXAMINATION: MM screening blanca BI w dorota HISTORY: Screening TECHNIQUE: Craniocaudal and mediolateral oblique 3-D tomosynthesis images were obtained and synthetic 2-D images were generated. CAD analysis was submitted and interpreted. COMPARISON: Comparison to multiple prior studies sequentially, with oldest reviewed study dated 09/18. BREAST PARENCHYMAL COMPOSITION: There are scattered areas of fibroglandular density. FINDINGS: There is no evidence of suspicious mass, calcification, or architectural distortion to sug gest malignancy in either breast. IMPRESSION: 1. No mammographic evidence of malignancy. 2. Recommend routine screening mammography in one year. BI-RADS Category 1: Negative Reviewed, dictated and finalized at location B.
--- OUTSIDE RECORDS SUMMARY | 2024-11-04 08:20 | XMS_ITS | Clinical Summary ---
Author Organization [facility] Address [address] [place] [id number] Care Team Providers Care Insole Tacker Name Role Phone Unavailable Primary Care Provider Unavailabl e Social History Tobacco Use Types Packs/Day Years Used Date Smoking Tobacco: Never Assessed Comments Unknown Sex and Gender Information Value Date Recorded Sex Assigned at Not on file Legal Sex Female 5:09 PM CDT Gender Identity Not on file Sexual Orientation Not on file Plan of Treatment Health Maintenance Due Date Last Done Comments Cervical Cancer Screening Pa p Smear (Age 30 to 64) Every 3 Years 1980 Annual Physical 09/16/1983 Hepatitis C 1998 DTaP, Tdap and Td Vaccines ( 1 - Tdap) 09/16/1999 Hepatitis B Vaccines (1 of 3 - 19+ 3-dose series) 09/16/1999 HPV Vaccines (1 - 3-dose SCD M series) 09/16/2007 Cervical Cancer Screening Pa p with HPV Testing (Age 30 to 64) Every 5 Years 2010 Cervical Cancer Screening with HPV 2010 Mammogram Screening 2020 COVID-19 Vaccine (2023-2 5 season) 2023 Meningococcal B Vaccine Aged Out No l onger eligible based on patient's age to complete this topic Meningococcal Vaccine Aged Out No angelina birdie eligible based on patient's age to complete this topic Pneumococcal Vaccine: Pediat rics (0 to 5 Years) and At-Risk Patients (6 to 49 Years) Aged Out No longer eligible b ased on patient's age to complete this topic RSV Immunizations Under 20 Months Aged Out No longer eligible based on patient's age to complete this topic
--- OUTSIDE RECORDS SUMMARY | 2024-11-04 08:20 | XMS_ITS | Clinical Summary ---
Author Organization [facility] Raymundo colin [facility] Address [address] [place] [address] [place] [address] Care Team Providers Care Inorganic Chemical Technician Name Role Phone Manda Doll FERNY Primary Care Provider [phone] Allergies Active Allergy Reactions Criticality Noted Date Comments Amoxicillin Hives High 11/09/2021 Penicillins Hives High 02/02/2018 Sulfa (Sulfonamide Antibiotics) Other (See Comments) 07/21/2021 Low platelets Sulfamethoxazole-Trimetho prim Other (See Comments) High 11/09/2021 Medications escitalopram oxalate (LEXAPRO) 10 mg tablet Take 10 mg by mouth daily. 2 Active pantoprazole (PROTONIX) 40 mg Tablet, Delayed Release (E.C.) TAKE 1 TABLET BY MOUTH EVERY DAY IN THE MORNING FOR 8 WEEKS 2 Active predniSONE (DELTASONE) 10 mg tablet PLEASE SEE ATTACHED FOR DETAILED DIRECTIONS 2 Active cefadroxil (DURICEF) 500 mg capsule cefadroxil 500 mg capsule TK 1 C PO BID FOR 10 DAYS Active Triamcinolone Acetonide 0.05 % Ointment triamcinolone acetonide 0.05 % topical ointment Apply by topical route. 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 Gender Identity Not on file Sexual Orientation Not on file Last Filed Vital Signs Vital Sign Reading Time Taken Comments Blood Pressure 138/88 11/09/2021 3:05 PM CDT Pulse 98 11/09/2021 3:05 PM CDT Temperature 36.4 C (97.5 F) 11/09/2021 3:05 PM CDT Respiratory Rate - - Oxygen Saturation 97% 11/09/2021 3:05 PM CDT Inhaled Oxygen Concentration - - Weight 99.4 kg (219 lb 1.6 oz) 11/09/2021 3:05 P M CDT Height 172.7 cm (5' 8) 11/09/2021 3:05 PM CDT Body Mass Index 33.31 11/09/2021 3:05 PM CDT Plan of Treatment Health Maintenance Due Date Last Done Comments HPV VACCINES (1 - 3-dose series) 09/16/1995 HEPATITIS B VACCINES (1 of 3 - 19+ 3-dose series) 09/01 HPV/Cotest (21-29) 2001 CERVICAL CANCER SCREENING 2010 HPV/Cotest (30-65) 2010 PAP SMEAR 2010 BREAST CANCER SCREENING 2020 INFLUENZA VACCINE (#1) 2024 DTAP/TDAP/TD VACCINES (2 - Td or Tdap) 02/24/2027 Insurance [facility] [id number] [facility] Address: [facility] [id number] [place] [id number] Care Teams Inorganic Chemical Technician Relationship Specialty Start Date End Date Manda Doll FNP [address] [facility] [address] [place] [address] PCP - General Nurse Practitioner Family 07/21/21
--- OUTSIDE RECORDS SUMMARY | 2024-11-04 08:20 | XMS_ITS | Encounter Summary ---
Author Organization [facility] Address [address] [facility] Attn: Epic Prelude ADT URSULA JIMENEZ [address] Care Team Providers Care Completion Manager Name Role Phone Manda Doll Primary Care Provider [phone] Encounter Details Date Type Department Care Team (Late st Contact Info) Description 02/19/1997 Outpatient Historical Conversion, History Social History Tobacco Use Types Packs/Day Years Used Date Smoking Tobacco: Never Assessed Comments Unknown Sex and Gender Information Value Date Recorded Sex Assigned at Not on file Legal Sex Female 3:56 AM CUFFER Gender Identity Not on file Sexual Orientation Not on file documented as of this encounter Plan of Treatment Not on file documented as of this encounter Visit Diagnoses Not on filedocumented in this encounter Care Teams Completion Manager Relationship Specialty Start Date End Date Manda Doll FNP [address] [facility] [address] [place] [id number] PCP - General Nurse Practitioner Family 07/21/21 documented as of this encounter
--- OUTSIDE RECORDS SUMMARY | 2024-11-04 08:21 | XMS_ITS | Clinical Summary ---
Author Organization [facility] Address [address] [facility] [place] [address] Care Team Providers Care Sandwich And Drink Cart Operator Name Role Phone Unavailable Primary Care Provider Unavailabl e Source Comments [facility],non-owned Affiliates and Associated Physician Practices is amultiple site organization consisting of ambulatory clinics and hospital sitesin [place], [place], [place] and [place]. This disclosure is being madepursuant to the Care Everywhere program and may not contain all information available regarding this patient. Last updated 17.[facility] Allergies Active Allergy Reactions Criticality Noted Date Comments Amoxicillin Urticaria Medium 02/02/2018 Penicillins Urticaria Medium 02/02/2018 Medications * Be aware that medications may not be up to date on this document. Alwaysverify current medications with the patient. DULoxetine HCl (CYMBALTA PO) Active Rosuvastatin Calcium (CRESTOR PO) Active albuterol HFA (PROVENTIL;VENT ANETA;PROAIR) 108 (90 Base) MCG/ACT inhaler Inhale 2 puffs by mouth every 4 hours as needed for Wheezing 1 Inhaler 12/10/2018 Active benzonatate (TESSALON) 100 MG capsuleIndicati ons:Cough Take 1 capsule by mouth 3 times daily as needed for Cough Reasons: Cough 30 capsule 12/10/2018 Active azithromycin (ZITHROMAX) 250 MG tablet Take 2 tabs today, then 1 tab daily for next 4 days 6 tablet 12/10/2018 Active Social History Tobacco Use Types Packs/Day Years Used Date Smoking Tobacco: Never Smokeless Tobacco: Never Comments No Sex and Gender Information Value Date Recorded Sex Assigned at Not on file Legal Sex Female 4:03 PM CDT Gender Identity Not on file Sexual Orientation Not on file Last Filed Vital Signs Vital Sign Reading Time Taken Comments Blood Pressure 140/86 12/10/2018 4:53 PM CDT Pulse 95 12/10/2018 4:53 PM CDT Temperature 37.3 C (99.2 F) 12/10/2018 4:53 PM CDT Respiratory Rate 21 12/10/2018 4:53 PM CDT Oxygen Saturation 97% 12/10/2018 4:53 PM CDT Inhaled Oxygen Concentration - - Weight 88.5 kg (195 lb) 12/10/2018 4:53 PM CDT Height 170.2 cm (5' 7) 12/10/2018 4:53 PM CDT Body Mass Index 30.54 12/10/2018 4:53 PM CDT Plan of Treatment Health Maintenance Due Date Last Done Comments MAMMOGRAM 1980 HIV SCREENING 09/16/1995 HEPATITIS C SCREENING 09/11/1998 DTAP/TDAP/TD VACCINES (1 - Tdap) 09/16/1999 HEPATITIS B VACCINE (1 of 3 - 19+ 3-dose series) 09/16/1999 HPV VACCINE (1 - 3-dose SCDM series) 09/16/2007 COVID-19 VACCINE (1 - 2023-2 5 season) 2023 DEPRESSION SCREENING 04/03/2024 INFLUENZA VACCINE (#1) 2024 ZOSTER VACCINE (1 of 2) 2030 HIB VACCINE Aged Out No longer eligi ble based on patient's age to complete this topic MENINGOCOCCAL (Group B) VACC INE SHARED DECISION-MAKING Aged Out No longer eligibl e based on patient's age to complete this topic MENINGOCOCCAL GROUPS A/C/Y/W VACCINE Aged Out No longer eligible b ased on patient's age to complete this topic PNEUMOCOCCAL VACCINE Aged Out No long er eligible based on patient's age to complete this topic Insurance [facility]
== END 2024-11-04 08:16 | disposition home or self-care (01) ==
LOC: CHSIMG 08:16
PROVIDERS: PCP Internal Medicine; Visit Provider Obstetrics & Gynecology Gynecology
DX: Z12.31 Encounter for screening mammogram for malignant neoplasm of breast (principal)
CPT/HCPCS: 77063; 77067